=== PATIENT | male | born 1935 | race African-American/Black ===

== ENCOUNTER 2020-02-27 11:40 | Observation (INO) ==
[2020-02-27 12:57] LABS: Basophils % 0.2 % (0.0-0.8); Hematocrit 38.1 VOL% (42.0-52.0); Hemoglobin 12.6 GM/DL (14.0-18.0); Immature Granulocytes % 1.5 %; Immature Granulocytes Absolute 0.35 #; Lymphocytes # 0.8 10*3/uL (1.4-4.0); Lymphocytes % 3.2 % (21.2-54.2); Mean Corpuscular HGB Conc 33.1 GM/DL (32-36); Mean Corpuscular Volume 92.7 FL (87-102); Mean Platelet Volume 9.7 FL (9.6-12.0); Monocytes % 5.3 % (1.7-12.7); Neutrophils % 89.8 % (38.7-73.9); Platelet Count 244 T/CUMM (130-400); Red Blood Count 4.11 MC/CUMM (3.8-5.5); Red Cell Distribution Width 13.3 % (9.3-17.3); White Blood Count 23.9 T/CUMM (4-12)
[2020-02-27 13:09] LABS: Apearance,Urine CLOUDY (Clear); Bilirubin,Urine Negative (Negative); Blood, Urine Moderate mg/dL (Negative); Glucose,Urine (UA) Negative (Negative); Ketones,Urine 80 mg/dL (Negative); Mucus,Urine Few /LPF (Occasional); Nitrite,Urine Positive (Negative); Protein,Urine 100 MG/DL; RBC,Urine 27 /HPF (0-4); Urine Color Yellow (Yellow); Urine Specific Gravity 1.021 (1.001-1.035); WBC,Urine 455 /HPF (0-6)
[2020-02-27 13:15] LABS: Band Neutrophils 1 % (0-10); Hypochromasia 1+; Lymphocytes 5 % (20-55); Microcytosis 1+; Ovalocytes Slight; Platelet Estimate Adequate; Segmented Neutrophils 89 % (50-85); Total Cells Counted 100
[2020-02-27] MEDS ORDERED: cefTRIAXone 1,000 MG in SODIUM CHLORIDE 0.9% 100 ML IV STA (13:18)
[2020-02-27 13:19] LABS: Albumin 3.2 G/DL (3.4-5.0); Bilirubin,Total 0.7 MG/DL (0.2-1.0); Calcium 8.9 MG/DL (8.5-10.1); Osmolality,Calculated 286.4 MOS/KG (273-304); Total Protein 6.5 G/DL (6.4-8.3)
[2020-02-27] MEDS ORDERED: SODIUM CHLORIDE 0.9% 500 ML IV STA (13:19)
[2020-02-27] MEDS ORDERED: ONDANSETRON 4 MG/2 ML VIAL IV PRN (16:13)
[2020-02-27] MEDS ORDERED: DEXTROSE 50% 25 GM/50 ML VIAL IV PRN ×2 (16:13)
[2020-02-27] MEDS ORDERED: INSULIN LISPRO 100 UNIT/ML SUBCUT SCH (16:30)
[2020-02-27] MEDS ORDERED: cefTRIAXone 1,000 MG in SYRINGE 1 EACH IV SCH (16:30)
[2020-02-27] MEDS ORDERED: INSULIN REGULAR 100 UNIT/ML ONE (17:06)
[2020-02-27] MEDS ORDERED: INSULIN REGULAR 100 UNIT/ML SUBCUT STA (17:17)
[2020-02-27] MEDS: SODIUM CHLORIDE 0.9% 1,000 ML IV SCH (19:00)
[2020-02-27] MEDS ORDERED: INSULIN REGULAR 100 UNIT/ML SUBCUT SCH (21:00)
[2020-02-27] MEDS: MEMANTINE 10 MG TABLET PO SCH (23:00)
[2020-02-27] MEDS: ATORVASTATIN 40 MG TABLET PO SCH (23:00)
[2020-02-28 06:20] LABS: Basophils % 0.3 % (0.0-0.8); Eosinophils # 0.2 10*3/uL (0.0-0.87); Hematocrit 34.9 VOL% (42.0-52.0); Hemoglobin 11.6 GM/DL (14.0-18.0); Immature Granulocytes % 0.6 %; Lymphocytes % 12.9 % (21.2-54.2); Mean Corpuscular HGB Conc 33.2 GM/DL (32-36); Mean Corpuscular Volume 91.6 FL (87-102); Mean Platelet Volume 9.7 FL (9.6-12.0); Monocytes % 6.7 % (1.7-12.7); Neutrophils % 78.5 % (38.7-73.9); Platelet Count 230 T/CUMM (130-400); Red Blood Count 3.81 MC/CUMM (3.8-5.5); Red Cell Distribution Width 13.3 % (9.3-17.3); White Blood Count 15.7 T/CUMM (4-12)
[2020-02-28 06:44] LABS: Albumin 2.6 G/DL (3.4-5.0); Bilirubin,Total 0.5 MG/DL (0.2-1.0); Calcium 8.9 MG/DL (8.5-10.1); Osmolality,Calculated 284.3 MOS/KG (273-304); Total Protein 6.5 G/DL (6.4-8.3)
[2020-02-28] MEDS: INSULIN REGULAR 100 UNIT/ML SUBCUT SCH ×5 (07:00→22:14)
[2020-02-28] MEDS: TAMSULOSIN 0.4 MG CAPSULE PO SCH (09:00)
[2020-02-28] MEDS ORDERED: amLODIPine 5 MG TABLET PO SCH ×2 (09:00→14:26)
[2020-02-28] MEDS: MEMANTINE 10 MG TABLET PO SCH ×2 (09:00→22:01)
[2020-02-28] MEDS: FINASTERIDE 5 MG TABLET PO SCH (09:00)
[2020-02-28] MEDS: PANTOPRAZOLE 40 MG TABLET PO SCH (09:00)
[2020-02-28] MEDS ORDERED: cloNIDine 0.1 MG TABLET PO ONE (14:25)
[2020-02-28] MEDS: cefTRIAXone 1,000 MG in SYRINGE 1 EACH IV SCH (15:11)
[2020-02-28] MEDS: SODIUM CHLORIDE 0.9% 1,000 ML IV SCH (17:06)
[2020-02-28] MEDS ORDERED: cloNIDine 0.1 MG TABLET PO SCH (21:00)
[2020-02-28] MEDS: ATORVASTATIN 40 MG TABLET PO SCH (22:01)
[2020-02-29] MEDS: SODIUM CHLORIDE 0.9% 1,000 ML IV SCH ×2 (02:43→14:09)
[2020-02-29 06:33] LABS: Basophils % 0.4 % (0.0-0.8); Eosinophils # 0.2 10*3/uL (0.0-0.87); Eosinophils % 2.2 % (0.00-10.9); Hematocrit 32.6 VOL% (42.0-52.0); Hemoglobin 10.7 GM/DL (14.0-18.0); Immature Granulocytes % 0.5 %; Immature Granulocytes Absolute 0.05 #; Lymphocytes # 1.7 10*3/uL (1.4-4.0); Lymphocytes % 15.6 % (21.2-54.2); Mean Corpuscular HGB Conc 32.8 GM/DL (32-36); Mean Corpuscular Volume 91.6 FL (87-102); Mean Platelet Volume 10.3 FL (9.6-12.0); Monocytes % 8.8 % (1.7-12.7); Neutrophils % 72.5 % (38.7-73.9); Platelet Count 240 T/CUMM (130-400); Red Blood Count 3.56 MC/CUMM (3.8-5.5); Red Cell Distribution Width 13.2 % (9.3-17.3); White Blood Count 10.9 T/CUMM (4-12)
[2020-02-29 06:51] LABS: Calcium 8.5 MG/DL (8.5-10.1); Osmolality,Calculated 284.1 MOS/KG (273-304)
[2020-02-29] MEDS: INSULIN REGULAR 100 UNIT/ML SUBCUT SCH ×3 (08:06→18:26)
[2020-02-29] MEDS: PANTOPRAZOLE 40 MG TABLET PO SCH (08:41)
[2020-02-29] MEDS: MEMANTINE 10 MG TABLET PO SCH (08:41)
[2020-02-29] MEDS: TAMSULOSIN 0.4 MG CAPSULE PO SCH (08:41)
[2020-02-29] MEDS: FINASTERIDE 5 MG TABLET PO SCH (08:41)
[2020-02-29] MEDS ORDERED: lisinopriL 10 MG TABLET PO ONE (13:39)
[2020-02-29] MEDS: cefTRIAXone 1,000 MG in SYRINGE 1 EACH IV SCH (14:03)
[2020-02-29 17:34] VITALS: BP 166/74
[2020-03-01] MEDS ORDERED: lisinopriL 10 MG TABLET PO SCH (12:00)
== END 2020-02-29 18:18 | disposition home health service (06) ==
LOC: EDUNIT# → EDBD → N.EDINP 11:40 → N.ED 11:40 → N.2W 02-28 10:25 → N.TELEN 02-28 13:20
PROVIDERS: ADMIT Internal Medicine; ATTEND Internal Medicine